=== PATIENT | male | born 1995 | race Two or more races ===

== ENCOUNTER 2018-12-20 22:33 | Emergency (ER) | payer MEDICAID ==
[~2018-12-20] VITALS: Ht 180.3 cm; Wt 97.5 kg
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
[2018-12-20] MEDS ORDERED: MORPHINE SULFATE 4 MG/1 ML DISP.SYRIN IM ONE (23:00)
[2018-12-20] MEDS ORDERED: TDAP DIPH,PERTUSS,TET VAC/PF 0.5 ML DISP.SYRIN IM ONE ×2 (23:00→23:13)
[2018-12-20] MEDS ORDERED: ONDANSETRON 4 MG/2 ML VIAL IM ONE (23:00)
[2018-12-20] MEDS ORDERED: ONDANSETRON 4 MG/2 ML VIAL ONE (23:13)
[2018-12-20] MEDS ORDERED: MORPHINE SULFATE 4 MG/1 ML DISP.SYRIN ONE (23:13)
[2018-12-20] MEDS ORDERED: SILVER SULFADIAZINE 1% CREAM 25 GM TUBE TP ONE ×2 (23:27→23:30)
--- NOTE | 2018-12-20 23:54 | NUR ---
Patient discharged to home in stable conditon. Written and verbal after care instructions given. Patient verbalizes understanding of instructions. Pt. d/c w/ prescription per MD order, d/c papers signed, all belongings w/ pt., ambulated off unit w/ steady gait accompanied by mother, [email or web address]
== END 2018-12-20 23:56 | disposition home or self-care (01) ==
LOC: ER 22:33
DX: T25.211A Burn of second degree of right ankle, initial encounter (principal); T25.221A Burn of second degree of right foot, initial encounter; T24.201A Burn of second degree of unspecified site of right lower limb, except ankle and foot, initial encounter; Z88.8 Allergy status to other drugs, medicaments and biological substances; X19.XXXA Contact with other heat and hot substances, initial encounter; Y93.89 Activity, other specified; Y92.89 Other specified places as the place of occurrence of the external cause; Y99.8 Other external cause status
CPT/HCPCS: 16020; 90471; 90715; 96372 ×2; 99284; J2270; J2405; A4663